=== PATIENT | male | born 1970 | race Caucasian/White ===

== ENCOUNTER 2024-12-24 13:22 | Emergency (ER) | payer OTHER ==
[~2024-12-24] VITALS: Ht 177.8 cm; Wt 90.5 kg
[2024-12-24] MEDS ORDERED: ATOR1TAB21 PO (13:58)
[2024-12-24] MEDS ORDERED: OMEP40CA4 PO (13:58)
[2024-12-24] MEDS ORDERED: CULT10CA4 PO (13:58)
[2024-12-24] MEDS ORDERED: ERGO500029 PO (13:58)
[2024-12-24] MEDS ORDERED: LISI10TA22 PO (13:58)
[2024-12-24] MEDS ORDERED: ZYRT10TA12 PO (13:58)
[2024-12-24 14:39] LABS: BASO # 0.0 10^3/uL (0.0-0.2); BASO % 0.5 % (0.0-1.0); EOS # 0.1 10^3/uL (0.0-0.5); EOS % 1.8 % (0.0-3.0); LYMPH # 1.5 10^3/uL (1.5-5.0); LYMPH % 20.8 % (24.0-44.0); MONO # 0.7 10^3/uL (0.0-0.8); MONO % 9.7 % (2.0-8.0); NEUTROPHILS # 5.0 10^3/uL (1.5-8.5); NEUTROPHILS % 66.7 % (36.0-66.0); PLATELET COUNT, AUTOMATED 273 10^3/uL (150-450)
[2024-12-24 14:54] LABS: INR 0.88
[2024-12-24] MEDS ORDERED: ISOVUE-370 76% 100 ML VIAL As Ordered ONE (14:55)
[2024-12-24 15:01] LABS: AMPHETAMINES LEVEL URINE NEGATIVE (NEGATIVE); BARBITURATES URINE NEGATIVE (NEGATIVE); BENZODIAZEPINES URINE NEGATIVE (NEGATIVE); CANNABINOIDS URINE NEGATIVE (NEGATIVE); COCAINE METABOLITE URINE NEGATIVE (NEGATIVE); METHADONE URINE NEGATIVE (NEGATIVE); OPIATES URINE NEGATIVE (NEGATIVE); PHENCYCLIDINE URINE NEGATIVE (NEGATIVE)
[2024-12-24 15:03] LABS: CK-MB VALUE MASS 1.8 NG/ML (<3.6)
[2024-12-24 15:05] LABS: ALT/SGPT 30 U/L (7.0-40); AST/SGOT 19 U/L (<34)
[2024-12-24 15:07] LABS: CPK CREATINE PHOSPHOKINASE 121 U/L (46-171); MB/CK RELATIVE INDEX 1.48 (< OR =4)
[2024-12-24 16:33] LABS: CK-MB VALUE MASS 1.7 NG/ML (<3.6)
[2024-12-24 16:38] LABS: CPK CREATINE PHOSPHOKINASE 116 U/L (46-171); MB/CK RELATIVE INDEX 1.46 (< OR =4)
[2024-12-24 17:37] VITALS: O2SAT 98
[2024-12-24 17:41] VITALS: BP 137/90; TEMP 98
== END 2024-12-24 17:45 | disposition home or self-care (01) ==
LOC: EDBD 13:22 → M ED 13:22
DX: S20.214A Contusion of middle front wall of thorax, initial encounter (principal); S60.212A Contusion of left wrist, initial encounter; Y92.9 Unspecified place or not applicable; Y93.9 Activity, unspecified; Y99.9 Unspecified external cause status; V49.40XA Driver injured in collision with unspecified motor vehicles in traffic accident, initial encounter; Z79.899 Other long term (current) drug therapy
CPT/HCPCS: 36415; 71045; 71275; 73110; 80047; 80076; 80307; 82550; 82553; 83605; 84484; 85025; 85610; 85730; 86850; 86900; 86901; 93005; 93041; 94760; 99285; Q9967